=== PATIENT | female | born 1990 | race American Indian/Alaskan Native ===

== ENCOUNTER 2016-08-06 00:42 | Emergency (ER) | payer MEDICAID ==
--- NOTE | 2016-08-06 01:25 | EDM.PDOC ---
ED HPI GENERAL MEDICAL PROBLEM - General Chief Complaint: Genitourinary Problem Stated Complaint: BLADDER INFECTION Time Seen by Provider: 08/06/16 01:22 - History of Present Illness INITIAL COMMENTS - FREE TEXT/NARRATIVE: HISTORY AND PHYSICAL: History of present illness: This 25-year-old female she is referred today history of frequency and discomfort with urination she denies fever chills nausea vomiting or other complaints Review of systems: As per history of present illness and below otherwise all systems reviewed and negative. Past medical history: As per history of present illness and as reviewed below otherwise noncontributory. Surgical history: As per history of present illness and as reviewed below otherwise noncontributory. Social history: No reported history of drug or alcohol abuse. Family history: As per history of present illness and as reviewed below otherwise noncontributory. Physical exam: HEENT: Atraumatic, normocephalic, pupils reactive, negative for conjunctival pallor or scleral icterus, mucous membranes moist, throat clear, neck supple, nontender, trachea midline. Lungs: Clear to auscultation, breath sounds equal bilaterally, chest nontender. Heart: S1S2, regular, negative for clicks, rubs, or JVD. Abdomen: Soft, nondistended, nontender. Negative for masses or hepatosplenomegaly. Negative for costovertebral tenderness. Pelvis: Stable nontender. Genitourinary: Deferred. Rectal: Deferred. Extremities: Atraumatic, negative for cords or calf pain. Neurovascular unremarkable. Neuro: Awake, alert, oriented. Cranial nerves II through XII unremarkable. Cerebellum unremarkable. Motor and sensory unremarkable throughout. Exam nonfocal. Diagnostics: Urine culture and sensitive urinalysis Therapeutics: None Impression: #1 UTI Definitive disposition and diagnosis as appropriate pending reevaluation and review of above. right lower quadrant Pain Score (Numeric/FACES): 5 - Related Data Allergies Allergy/AdvReac Type Severity Reaction Status Date / Time No Known Allergies Allergy Verified 08/06/16 00:45 Home Meds: Home Meds Gabapentin [Neurontin] 200 mg PO TID 08/06/16 [History] traMADol HCl [Tramadol HCl] 50 mg PO 08/06/16 [History] Past Medical History - Past Health History Medical/Surgical History: Denies Medical/Surgical History HEENT History: Reports: None Cardiovascular History: Reports: None Respiratory History: Reports: None Other Gastrointestinal History: H. 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 Other OB/BYN History: miscarraige Musculoskeletal History: Reports: None Neurological History: Reports: None Psychiatric History: Reports: Anxiety Endocrine/Metabolic History: Reports: None Hematologic History: Reports: None Oncologic (Cancer) History: Reports: None Dermatologic History: Reports: None - Infectious Disease History Infectious Disease History: Reports: Chicken Pox - Past Surgical History Female Surgical History: Reports: None Social & Family History - Family History Family Medical History: Noncontributory - Tobacco Use Smoking Status *Q: Current Every Day Smoker Years of Tobacco use: 12 Packs/Tins Daily: 1 Second Hand Smoke Exposure: No - Caffeine Use Caffeine Use: Reports: None - Alcohol Use Days Per Week of Alcohol Use: 0 - Recreational Drug Use Recreational Drug Use: No ED ROS GENERAL - Review of Systems Review Of Systems: ROS reveals no pertinent complaints other than HPI. ED EXAM, GENERAL - Physical Exam Exam: See Below (See dictation) Course - Vital Signs Last Recorded V/S: Last Vital Signs Temp 36.3 C 08/06/16 00:46 Pulse 98 08/06/16 00:46 Resp 16 08/06/16 00:46 BP 123/72 08/06/16 00:46 Pulse Ox 95 08/06/16 00:46 - Orders/Labs/Meds Labs: Laboratory Tests 08/06/16 Range/Units 00:50 Urine Color YELLOW Urine Appearance CLOUDY Urine pH 6.0 (5.0-8.0) Ur Specific [place] >= 1.030 (1.001-1.035) Urine Protein TRACE (NEGATIVE) mg/dL Urine Glucose (UA) NEGATIVE (NEGATIVE) mg/dL Urine Ketones TRACE H (NEGATIVE) mg/dL Urine Occult Blood TRACE-INTACT (NEGATIVE) Urine Nitrite NEGATIVE (NEGATIVE) Urine Bilirubin NEGATIVE (NEGATIVE) Urine Urobilinogen 1.0 (<2.0) EU/dL Ur Leukocyte Esterase TRACE (NEGATIVE) Urine RBC 0-3 (0-2/HPF) Urine WBC 50-75 (0-5/HPF) Ur Epithelial Cells FEW (NONE-FEW) Urine Bacteria 2+ H (NEGATIVE) Urine Mucus LIGHT (NONE-MOD) Departure - Departure Time of Disposition: 01:24 Disposition: Home, Self-Care 01 Condition: good Clinical Impression: UTI, Urinary tract infectious disease - Discharge Information Forms: ED Department Discharge Additional Instructions: The following information is given to patients seen in the emergency department who are being discharged to home. This information is to outline your options for follow-up care. We provide all patients seen in our emergency department with a follow-up referral. The need for follow-up, as well as the timing and circumstances, are variable depending upon the specifics of your emergency department visit. If you don't have a primary care physician on staff, we will provide you with a referral. We always advise you to contact your personal physician following an emergency department visit to inform them of the circumstance of the visit and for follow-up with them and/or the need for any referrals to a consulting specialist. The emergency department will also refer you to a specialist when appropriate. This referral assures that you have the opportunity for followup care with a specialist. All of these measure are taken in an effort to provide you with optimal care, which includes your followup. Under all circumstances we always encourage you to contact your private physician who remains a resource for coordinating your care. When calling for followup care, please make the office aware that this follow-up is from your recent emergency room visit. If for any reason you are refused follow-up, please contact the [facility] emergency department at and asked to speak to the emergency department charge nurse. Petrtanya prescribed peridium as prescribed followup primary medical doctor and/or clinic above is discussed return as needed as discussed
[2016-08-06 01:43] VITALS: BP 110/73
== END 2016-08-06 01:38 | disposition home or self-care (01) ==
LOC: MW.ED 00:42
DX: N39.0 Urinary tract infection, site not specified (principal); F17.210 Nicotine dependence, cigarettes, uncomplicated
CPT/HCPCS: 81001; 87086; 87088; 87186; 99282; 99284

== ENCOUNTER 2017-01-31 14:22 | Emergency (ER) | payer MEDICAID ==
--- NOTE | 2017-01-31 14:47 | EDM.PDOC ---
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 Past medical history: As per history of present illness and as reviewed below otherwise noncontributory. Surgical history: As per history of present illness and as reviewed below otherwise noncontributory. Social history: No reported history of drug or alcohol abuse. Family history: As per history of present illness and as reviewed below otherwise noncontributory. Physical exam: HEENT: Atraumatic, normocephalic, pupils reactive, negative for conjunctival pallor or scleral icterus, mucous membranes moist, throat clear, neck supple, nontender, trachea midline. Lungs: Clear to auscultation, breath sounds equal bilaterally, chest nontender. Heart: S1S2, regular, negative for clicks, rubs, or JVD. Abdomen: Soft, nondistended, nontender. Negative for masses or hepatosplenomegaly. Negative for costovertebral tenderness. Pelvis: Stable nontender. Genitourinary: Deferred. Rectal: Deferred. Extremities: Atraumatic, negative for cords or calf pain. Neurovascular unremarkable. Neuro: Awake, alert, oriented. Cranial nerves II through XII unremarkable. Cerebellum unremarkable. Motor and sensory unremarkable throughout. Exam nonfocal. Diagnostics: [UA hCG] GC chlamydia Therapeutics: []Rocephin 250 mg IM Azithromycin 1 g by mouth Impression: [Vaginal discharge Possible STI exposure] Definitive disposition and diagnosis as appropriate pending reevaluation and review of above. - Related Data Allergies Allergy/AdvReac Type Severity Reaction Status Date / Time No Known Allergies Allergy Verified 01/31/17 14:34 Home Meds: Home Meds Gabapentin [Neurontin] 900 mg PO TID 08/06/16 [History] Past Medical History - Past Health History Medical/Surgical History: Denies Medical/Surgical History HEENT History: Reports: None Cardiovascular History: Reports: None Respiratory History: Reports: None Other Gastrointestinal History: H. 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 History: Reports: None TIE INSPECTOR History: Reports: None Other OB/BYN History: miscarraige Musculoskeletal History: Reports: None Neurological History: Reports: None Psychiatric History: Reports: Anxiety Endocrine/Metabolic History: Reports: None Hematologic History: Reports: None Oncologic (Cancer) History: Reports: None Dermatologic History: Reports: None - Infectious Disease History Infectious Disease History: Reports: Chicken Pox - Past Surgical History Female Surgical History: Reports: None Social & Family History - Family History Family Medical History: Noncontributory - Tobacco Use Smoking Status *Q: Current Every Day Smoker Years of Tobacco use: 12 Packs/Tins Daily: 1 Second Hand Smoke Exposure: No - Caffeine Use Caffeine Use: Reports: None - Alcohol Use Days Per Week of Alcohol Use: 0 - Recreational Drug Use Recreational Drug Use: No ED ROS GENERAL - Review of Systems Review Of Systems: ROS reveals no pertinent complaints other than HPI. ED EXAM, GENERAL - Physical Exam Exam: See Below Course - Vital Signs Last Recorded V/S: Last Vital Signs Temp 98.0 F 01/31/17 14:38 Pulse 112 H 01/31/17 14:38 Resp 16 01/31/17 14:38 BP 138/77 01/31/17 16:50 Pulse Ox 99 01/31/17 16:50 - Orders/Labs/Meds Labs: Laboratory Tests 01/31/17 01/31/17 01/31/17 Range/Units 15:10 15:10 15:10 Urine Color YELLOW Urine Appearance CLEAR Urine pH 7.0 (5.0-8.0) Ur Specific [place] 1.010 (1.001-1.035) Urine Protein NEGATIVE (NEGATIVE) mg/dL Urine Glucose (UA) NEGATIVE (NEGATIVE) mg/dL Urine Ketones 15 H (NEGATIVE) mg/dL Urine Occult Blood NEGATIVE (NEGATIVE) Urine Nitrite NEGATIVE (NEGATIVE) Urine Bilirubin NEGATIVE (NEGATIVE) Urine Urobilinogen 1.0 (<2.0) EU/dL Ur Leukocyte Esterase MODERATE (NEGATIVE) Urine RBC NONE SEEN (0-2/HPF) Urine WBC 3-5 (0-5/HPF) Ur Epithelial Cells FEW (NONE-FEW) Amorphous Sediment LIGHT (NEGATIVE) Urine Bacteria FEW (NEGATIVE) Urine Mucus NOT SEEN (NONE-MOD) Urine HCG, Qual NEGATIVE (NEGATIVE) Chlamydia/GC Source URINE C.trachomatis RNA (TMA) Positive H (Negative) N.gonorrhoeae RNA (TMA) Negative (Negative) Meds: Medications Discontinued Medications Generic Name Dose Route Start Last Admin Trade Name Tomy PRN Reason Stop Dose Admin Azithromycin 1,000 mg 01/31/17 15:30 01/31/17 16:33 Zithromax PO 1,000 mg Q24H NELIA Administration Ceftriaxone Sodium 250 mg 01/31/17 15:18 01/31/17 16:31 Rocephin IM 01/31/17 15:19 250 mg ONETIME ONE Administration Lidocaine HCl Confirm 01/31/17 16:28 01/31/17 16:32 Xylocaine-Mpf 1% Administered 01/31/17 16:29 1 ml Dose Administration 2 mls @ as directed .ROUTE .STK-MED ONE Lidocaine HCl 1 ml 01/31/17 16:24 01/31/17 16:33 Xylocaine 1% INJECT 01/31/17 16:25 Not Given ONETIME ONE Departure - Departure Time of Disposition: 04:11 Disposition: Home, Self-Care 01 Condition: Good Clinical Impression: Exposure to STD, Vaginal discharge - Discharge Information Instructions: Sexually Transmitted Disease, [id number] Referrals: PCP,None [Primary Care Provider] - Forms: ED Department Discharge Additional Instructions: My general discharge The following information is given to patients seen in the emergency department who are being discharged to home. This information is to outline your options for follow-up care. We provide all patients seen in our emergency department with a follow-up referral. The need for follow-up, as well as the timing and circumstances, are variable depending upon the specifics of your emergency department visit. If you don't have a primary care physician on staff, we will provide you with a referral. We always advise you to contact your personal physician following an emergency department visit to inform them of the circumstance of the visit and for follow-up with them and/or the need for any referrals to a consulting specialist. The emergency department will also refer you to a specialist when appropriate. This referral assures that you have the opportunity for follow-up care with a specialist. All of these measure are taken in an effort to provide you with optimal care, which includes your follow-up. Under all circumstances we always encourage you to contact your private physician who remains a resource for coordinating your care. When calling for follow-up care, please make the office aware that this follow-up is from your recent emergency room visit. If for any reason you are refused follow-up, please contact the Emergency Department at and asked to speak to the emergency department charge nurse. Primary Care [address] [place] [id number] Primary Care - Women's Health [address] [place] [address] 1. Please practice safe sex. He do plan on continuing to be sexually active he may want to consider some form of family planning unless you are trying to get . 2. Today you received 250mg Rocephin and 1 gm Zithromax. A prescription for Flagyl has been given. A urine culture has been sent to the [facility] for evaluation. You have been covered for gonorrhea, chlamydia, trichomonas - we will call you if any of these come back positive and require any additional treatment. 3. Follow-up with your TIE INSPECTOR in the next 1 -2 days. Return to the ED as needed and as discussed.
[2017-01-31] MEDS ORDERED: cefTRIAXone 250 MG Vial IM ONE (15:18)
[2017-01-31] MEDS ORDERED: Azithromycin 250 MG Tab PO SCH (15:30)
--- NOTE | 2017-01-31 16:19 | EDM.PDOC ---
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 States she had unprotected sex approximately 2 days ago with a new partner. She states during this encounter she thought she felt the condom break. The next day the partner then told her that he thinks he may have "something" suggesting an STD. States she has a foul odor from her vagina with light yellow discharge. Denies any itching, any external lesions/ bumps, or dysuria. Last menstrual period was 01/23/2017. Does not take any form of control. Review of systems: As per history of present illness and below otherwise all systems reviewed and negative. Past medical history: As per history of present illness and as reviewed below otherwise noncontributory. Surgical history: As per history of present illness and as reviewed below otherwise noncontributory. Social history: No reported history of drug or alcohol abuse. Family history: As per history of present illness and as reviewed below otherwise noncontributory. Physical exam: HEENT: Atraumatic, normocephalic, pupils reactive, negative for conjunctival pallor or scleral icterus, mucous membranes moist, throat clear, neck supple, nontender, trachea midline. Lungs: Clear to auscultation, breath sounds equal bilaterally, chest nontender. Heart: S1S2, regular, negative for clicks, rubs, or JVD. Abdomen: Soft, nondistended, nontender. Negative for masses or hepatosplenomegaly. Negative for costovertebral tenderness. Pelvis: Stable nontender. Genitourinary: Deferred. Rectal: Deferred. Extremities: Atraumatic, negative for cords or calf pain. Neurovascular unremarkable. Neuro: Awake, alert, oriented. Cranial nerves II through XII unremarkable. Cerebellum unremarkable. Motor and sensory unremarkable throughout. Exam nonfocal. Patient states she does not want a pelvic done at this time. She is requesting to be tested and treated. We discussed risks versus benefits of doing so. She is aware. Medications will be given here along with a prescription. Denies any further questions at this time Diagnostics: Gonorrhea, chlamydia, UA, urine , trichomonas Therapeutics: Rocephin 250 mg IM Azithromycin 1 g PO Impression: Exposure to STD Plan: 1. Please practice safe sex. He do plan on continuing to be sexually active he may want to consider some form of family planning unless you are trying to get . 2. Today you received 250mg Rocephin and 1 gm Zithromax. A prescription for Flagyl has been given. A urine culture has been sent to the [facility] for evaluation. You have been covered for gonorrhea, chlamydia, trichomonas - we will call you if any of these come back positive and require any additional treatment. 3. Follow-up with your DOCUMENTATION WRITER in the next 1 -2 days. Return to the ED as needed and as discussed Definitive disposition and diagnosis as appropriate pending reevaluation and review of above. - Related Data Allergies Allergy/AdvReac Type Severity Reaction Status Date / Time No Known Allergies Allergy Verified 01/31/17 14:34 Home Meds: Home Meds Gabapentin [Neurontin] 900 mg PO TID 08/06/16 [History] Past Medical History - Past Health History Medical/Surgical History: Denies Medical/Surgical History HEENT History: Reports: None Cardiovascular History: Reports: None Respiratory History: Reports: None Gastrointestinal History: Reports: Other (See Below) Other Gastrointestinal History: H. 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 History: Reports: None DOCUMENTATION WRITER History: Reports: None Other OB/BYN History: miscarraige Musculoskeletal History: Reports: None Neurological History: Reports: None Psychiatric History: Reports: Anxiety Endocrine/Metabolic History: Reports: None Hematologic History: Reports: None Oncologic (Cancer) History: Reports: None Dermatologic History: Reports: None - Infectious Disease History Infectious Disease History: Reports: Chicken Pox - Past Surgical History Female Surgical History: Reports: None Social & Family History - Family History Family Medical History: Noncontributory - Tobacco Use Smoking Status *Q: Current Every Day Smoker Years of Tobacco use: 12 Packs/Tins Daily: 1 Second Hand Smoke Exposure: No - Caffeine Use Caffeine Use: Reports: None - Alcohol Use Days Per Week of Alcohol Use: 0 - Recreational Drug Use Recreational Drug Use: No ED ROS GENERAL - Review of Systems Review Of Systems: ROS reveals no pertinent complaints other than HPI. ED EXAM, RENAL/ - Physical Exam Exam: See Below (See dictation) Course - Vital Signs Last Recorded V/S: Last Vital Signs Temp 36.7 C 01/31/17 14:38 Pulse 112 H 01/31/17 14:38 Resp 16 01/31/17 14:38 BP 127/83 01/31/17 14:38 Pulse Ox 98 01/31/17 14:38 - Orders/Labs/Meds Orders: Active Orders 24 hr Category Date Time Status CHLAMYDIA AND GONORRHEA BY TMA Stat Lab 01/31/17 15:10 Received Azithromycin [Zithromax] Med 01/31/17 15:30 Active 1,000 mg PO Q24H Medication Orders Azithromycin (Zithromax) 1,000 mg PO Q24H NELIA Labs: Laboratory Tests 01/31/17 01/31/17 Range/Units 15:10 15:10 Urine Color YELLOW Urine Appearance CLEAR Urine pH 7.0 (5.0-8.0) Ur Specific [place] 1.010 (1.001-1.035) Urine Protein NEGATIVE (NEGATIVE) mg/dL Urine Glucose (UA) NEGATIVE (NEGATIVE) mg/dL Urine Ketones 15 H (NEGATIVE) mg/dL Urine Occult Blood NEGATIVE (NEGATIVE) Urine Nitrite NEGATIVE (NEGATIVE) Urine Bilirubin NEGATIVE (NEGATIVE) Urine Urobilinogen 1.0 (<2.0) EU/dL Ur Leukocyte Esterase MODERATE (NEGATIVE) Urine RBC NONE SEEN (0-2/HPF) Urine WBC 3-5 (0-5/HPF) Ur Epithelial Cells FEW (NONE-FEW) Amorphous Sediment LIGHT (NEGATIVE) Urine Bacteria FEW (NEGATIVE) Urine Mucus NOT SEEN (NONE-MOD) Urine HCG, Qual NEGATIVE (NEGATIVE) Meds: Medications Generic Name Dose Route Start Last Admin Trade Name Freq PRN Reason Stop Dose Admin Azithromycin 1,000 mg 01/31/17 15:30 Zithromax PO Q24H NELIA Discontinued Medications Generic Name Dose Route Start Last Admin Trade Name Freq PRN Reason Stop Dose Admin Ceftriaxone Sodium 250 mg 01/31/17 15:18 Rocephin IM 01/31/17 15:19 ONETIME ONE Departure - Departure Time of Disposition: 16:16 Disposition: Home, Self-Care 01 Condition: Good Clinical Impression: Exposure to STD - Discharge Information Referrals: PCP,None [Primary Care Provider] - Forms: ED Department Discharge Additional Instructions: My general discharge The following information is given to patients seen in the emergency department who are being discharged to home. This information is to outline your options for follow-up care. We provide all patients seen in our emergency department with a follow-up referral. The need for follow-up, as well as the timing and circumstances, are variable depending upon the specifics of your emergency department visit. If you don't have a primary care physician on staff, we will provide you with a referral. We always advise you to contact your personal physician following an emergency department visit to inform them of the circumstance of the visit and for follow-up with them and/or the need for any referrals to a consulting specialist. The emergency department will also refer you to a specialist when appropriate. This referral assures that you have the opportunity for follow-up care with a specialist. All of these measure are taken in an effort to provide you with optimal care, which includes your follow-up. Under all circumstances we always encourage you to contact your private physician who remains a resource for coordinating your care. When calling for follow-up care, please make the office aware that this follow-up is from your recent emergency room visit. If for any reason you are refused follow-up, please contact the [facility] Emergency Department at and asked to speak to the emergency department charge nurse. [facility] Primary Care [address] [place] [id number] [facility] Primary Care - Women's Health [address] [place] [id number] 1. Please practice safe sex. He do plan on continuing to be sexually active he may want to consider some form of family planning unless you are trying to get . 2. Today you received 250mg Rocephin and 1 gm Zithromax. A prescription for Flagyl has been given. A urine culture has been sent to the [facility] for evaluation. You have been covered for gonorrhea, chlamydia, trichomonas - we will call you if any of these come back positive and require any additional treatment. 3. Follow-up with your DOCUMENTATION WRITER in the next 1 -2 days. Return to the ED as needed and as discussed. - My Orders Last 24 Hours: My Active Orders 01/31/17 15:30 Azithromycin [Zithromax] 1,000 mg PO Q24H - Assessment/Plan Last 24 Hours: My Active Orders 01/31/17 15:30 Azithromycin [Zithromax] 1,000 mg PO Q24H
[2017-01-31] MEDS ORDERED: Lidocaine 1% 20 ML MDV INJECT ONE (16:24)
[2017-01-31] MEDS ORDERED: Lidocaine 1% 2 ML ONE (16:28)
[2017-01-31 16:50] VITALS: BP 138/77
== END 2017-01-31 16:59 | disposition home or self-care (01) ==
LOC: MW.ED 14:22
DX: Z20.2 Contact with and (suspected) exposure to infections with a predominantly sexual mode of transmission (principal); F17.210 Nicotine dependence, cigarettes, uncomplicated
CPT/HCPCS: 81001; 81025; 87491; 87591; 96372; 99283; A9270; J0696